=== PATIENT | male | born 1940 | race Caucasian/White ===

== ENCOUNTER → 2024-04-28 14:33 | Outpatient (REF) | payer OTHER, SELFPAY | LOC: RAD 14:33 | PROVIDERS: ATTENDING PHYSICIAN Surgery Vascular Surgery; FAMILY PHYSICIAN Family Medicine | DX: I65.23 Occlusion and stenosis of bilateral carotid arteries (principal) | CPT/HCPCS: 93880 ==

== ENCOUNTER → 2024-05-15 14:00 | Outpatient (REF) | payer MEDICARE, SELFPAY | LOC: RCS 14:00 | PROVIDERS: ATTENDING PHYSICIAN Nurse Practitioner; FAMILY PHYSICIAN Family Medicine | DX: I25.10 Atherosclerotic heart disease of native coronary artery without angina pectoris (principal); R01.1 Cardiac murmur, unspecified; I10 Essential (primary) hypertension; E78.00 Pure hypercholesterolemia, unspecified | CPT/HCPCS: 93306 ==

== ENCOUNTER → 2024-06-26 19:49 | Outpatient (REF) | payer MEDICARE, SELFPAY | LOC: MRI 19:49 | PROVIDERS: ATTENDING PHYSICIAN Family Medicine | DX: R41.89 Other symptoms and signs involving cognitive functions and awareness (principal) | CPT/HCPCS: 70553; A9575 ==

== ENCOUNTER → 2024-11-03 15:26 | Outpatient (REF) | payer MEDICARE, SELFPAY | LOC: DHVS 15:26 | PROVIDERS: ATTENDING PHYSICIAN Surgery Vascular Surgery; FAMILY PHYSICIAN Family Medicine | DX: I65.23 Occlusion and stenosis of bilateral carotid arteries (principal) | CPT/HCPCS: 93880 ==

== ENCOUNTER 2025-04-20 12:51 | Observation (INO) | payer MEDICARE, SELFPAY ==
[2025-04-20] VITALS (11 sets, daily range): BP systolic 102–171; BP diastolic 45–72; PULSE 74; O2SAT 98; BMI 25.0; BMI 29.1
[2025-04-20 10:12] LABS: COVID-19 Antigen Positive (Negative)
[2025-04-20] MEDS: TYLENOL 650 MG PO ×2 (10:55→20:46)
[2025-04-20 10:59] LABS: Hematocrit 34.2 % (39.0-52.0); Hemoglobin 11.6 g/dL (13.0-18.0); Mean Corp Hgb Conc. 33.9 g/dL (33.0-37.0); Mean Corpuscular Volume 85.7 fL (80.0-94.0); Nucleated Red Blood Cells % 0 % (-); Platelet Count 146 10^3/uL (130-400); Red Cell Dist. Width 13.6 % (11.5-14.5)
--- NOTE | 2025-04-20 11:00 | ED.GENMED ---
History of Present Illness
General
Chief Complaint: Fever
Source: patient, family and ambulance crew
Exam Limitations: none
Time Seen by Provider: 04/20/25 10:16
Nursing documentation reviewed up to this point in time: agreed with
History of Present Illness
History of Present Illness:
84-year-old male with a past medical history of hypertension, hyperlipidemia, diabetes, CAD status post CABG who presents to the emergency department with his son for evaluation of generalized weakness. Patient currently lives at home in the
community with his . It sounds like over the past few days he has had increased generalized weakness. Overnight could not even stand to go to the bathroom on his own, this morning had great difficulty even getting him out of bed and into
a chair. EMS was called to bring him to the hospital for assessment. He has had mild cough over the past few days. Reports some mild congestion. Denies any sore throat. Denies any chest pain or shortness of breath. He was noted to have a fever
on arrival but denies subjective fever/chills. His is apparently sick with COVID. Aside from above complaints, patient's son notes that he has had a general functional decline over the past few months, has not been able to get up and go to
the bathroom on his own to the point that he is doing himself and discarding his underwear to avoid telling his .
Past History
Past History
ED Past Medical History: CAD and NIDDM
ED Past Surgical History: Cardiac
Social History
Tobacco: Former smoker
Review of Systems
Review of Systems
All Other Systems: ROS reviewed and negative except as documented in HPI and ROS
Constitutional: Reports fever and fatigue; Denies chills
EENT: Reports runny nose; Denies sore throat
Respiratory: Reports cough; Denies trouble breathing
Cardiac: Denies chest pain
ABD/GI: Denies abdominal pain, nausea, vomiting or diarrhea
: Denies flank pain
Musculoskeletal: Denies neck pain or back pain
Neurological: Reports weakness (Generalized); Denies headache
Phy Exam
Physical Exam
Physical Exam:
General: Awake, alert, oriented x3; no acute distress
Head: Normocephalic, atraumatic
Eyes: Conjunctiva normal, sclera anicteric
Throat: Airway intact, handling secretions, generally moist mucous membranes with no injection in the oropharynx
Neck: Trachea midline
Lungs: Occasional wheeze but no focal rales or rhonchi, mild tachypnea but no hypoxia and no signs of accessory muscle use or respiratory distress
Heart: Regular rate and rhythm, systolic murmur appreciated, sternotomy scar from prior CABG
Abd: Soft, non distended, nontender
Neuro: Grossly intact, moving all extremities without focal deficit
Skin: Warm and dry
Extremities: No edema in extremities, equal pulses in all extremities
Scores
Heart Failure Risk
Heart Failure Risk Score: Not Applicable
Heart Score for Chest Pain Patients
STEMI patient?: Not applicable
Withdrawal Assessment of Alcohol
Withdrawal Assessment Completed?: Not applicable
Course
Orders/Labs/Results
Orders:
Orders
04/20/25 09:39
COVID-19 Antigen Urgent
Source: Nasal Swab
Influenza A+B Rapid Molecular Urgent
ANIRUDH Source: Nasal Swab
Specimen Description:
04/20/25 10:37
Acetaminophen [Tylenol] 650 mg PO NOW STA
CR Chest - 2 Views Urgent
Comment:
Reason For Exam: fever, cough
04/20/25 10:53
Complete Blood Count/With Diff Urgent
Comprehensive Metabolic Panel Urgent
04/20/25 10:59
Case Management Consult ONCE
Case Management Consult: VN/Home Care
0.9% Sodium Chloride 500 ml [Nss] 500 ml IV BOLUS
04/20/25 11:06
Electrocardiogram (*1) Urgent
Reason for Study: Fatigue / Weakness
EKG- Treatment ONCE
Urinalysis Reflex To Culture Urgent
Abnormal Lab Results
04/20/25 04/20/25
09:39 10:53
RBC 3.99 L 10^6/uL
(4.70-6.10)
Hgb 11.6 L g/dL
(13.0-18.0)
Hct 34.2 L %
(39.0-52.0)
MPV 10.7 H fL
(7.4-10.4)
Absolute Lymphs (auto) 0.8 L 10^3/uL
(1.2-3.4)
Absolute Monos (auto) 0.8 H 10^3/uL
(0.1-0.6)
Immature Gran % 0.7 H %
(0-0.5)
Lymphocytes % 12.2 L %
(20.5-51.1)
Monocytes % 13.5 H %
(1.7-9.3)
Glucose 133 H mg/dl
(70-99)
SARS-CoV-2 Antigen Positive A
(Negative)
04/20/25 10:53
04/20/25 10:53
Vital Signs
Initial and Last Documented VS:
Initial Vital Signs
Temp Pulse Resp Pulse Ox
37.6 C 78 26 96
04/20/25 09:32 04/20/25 09:32 04/20/25 09:32 04/20/25 09:32
Last Documented Vital Signs
Temp Pulse Resp BP Pulse Ox
38.2 C H 78 26 120/48 98
04/20/25 09:46 04/20/25 09:32 04/20/25 09:32 04/20/25 09:34 04/20/25 11:06
MDM/Problems Addressed
Differential Diagnosis Includes:
COVID/viral illness, pneumonia, UTI, anemia, electrolyte derangement/dehydration, general deconditioning
MDM/Problems Addressed:
84-year-old male presents for evaluation of increased weakness over the past few days associated with cough and congestion; is sick with COVID. Son also notes general functional decline over the past few months. He is febrile on arrival here
with mild tachypnea but no hypoxia, normal heart rate and acceptable blood pressure. Physical exam is as noted. Will plan to check labs including a CBC and a CMP. COVID and flu swabs. Check chest x-ray and urinalysis. Reassess after the above.
Patient's COVID swab is positive suspect this is the etiology of his acute decline. I had a long discussion with the son who is concerned about patient's physical condition and especially given that only support at home is patient's who is 78
years old and sick herself. Will plan likely to admit given his functional limitations. Discussed with case management for consultation. Rest of workup is pending.
Labs reviewed: CBC shows stable anemia, CMP no clinically significant abnormalities. Chest x-ray shows no acute pneumonia. Will plan to admit for continued care given acute on chronic physical deconditioning with case management consultation
pending. Discussed with hospitalist for admission
*Radiology
Radiology exam reviewed: preliminary read by ED provider
*Pulse Oximetry
SaO2: 98
Oxygen Mode of Delivery: Room air
Patient hypoxic: no (98%)
*Critical Care Note
Total Time (30-74mins, 75-104mins- exclusive of procedures): Not Applicable
Data Reviewed
Review of Other/Old Records Reveals: Labs and Records
Source: patient, family and ambulance crew
Patient Management
Social determinants of health affecting care: Living situation (Lives independently with his elderly ) and Poor social support
Discussion with other providers: Hospitalist (Discussed with hospitalist) and Other (Discussed with nurse case management)
Escalation/DeEscalation of care consider admission/obs:
Admission indicated
ED Attending Note
-
Portions of this chart may have been created with voice recognition software.� Occasional wrong word or��sound alike� substitutions may have occurred due to the inherent limitations of voice recognition software.
Discharge Plan
Departure
Patient Disposition: Admit
Date of Disposition: 04/20/25
Time of Disposition: 11:38
Admit to doctor: Lenora
Presentation/result/management discussed w/ accepting MD/DO: Hospitalist
Discharge Problem:
COVID-19, Physical deconditioning
Prescriptions:
No Action
aspirin 81 MG tablet,delayed release (DR/EC)
81 mg PO DAILY
atorvastatin 40 MG tablet
40 mg PO DAILY
metformin 500 MG tablet
500 mg PO DAILY
clopidogrel 75 MG tablet
75 mg PO DAILY
Patient Comments:
1 week prior to surgery
metoprolol tartrate 25 MG tablet
25 mg PO BID
ergocalciferol (vitamin D2) 50 MCG tablet
50,000 units PO FR
tamsulosin 0.4 MG capsule
0.4 mg PO DAILY Qty: 30 0RF
Referrals:
Xavi Dutta DO [Family Provider, Family Practice]
Interventions
Interventions:
*Risk Screen - Suicide Last Done: 04/20/25 09:35
*General Assessment Last Done: 04/20/25 09:35
*Neglect/Abuse Screening Last Done: 04/20/25 09:35
*ED- Fall Risk Assessment Last Done: 04/20/25 09:35
*ED COVID-19 Vaccine History Last Done: 04/20/25 09:35
*ED Influenza Vaccine History Last Done: 04/20/25 09:35
Discharge Date and Time
Print Language: KYRGYZ
[2025-04-20 11:15] LABS: ALT (SGPT) 21 U/L (0-50); AST (SGOT) 23 U/L (17-59); Albumin 4.4 g/dl (3.5-5.0); Alkaline Phosphatase 68 U/L (38-126); Blood Urea Nitrogen 15 mg/dl (9-20); Calcium 9.0 mg/dl (8.4-10.2); Carbon Dioxide 29 mmol/L (22-30); Chloride 102 mmol/L (98-107); Estimated Creatinine Clearance 63 ml/min; Glucose 133 mg/dl (70-99); Potassium 4.0 mmol/L (3.5-5.1); Sodium 139 mmol/L (135-145); Total Protein 7.5 g/dl (6.3-8.2); eGFR > 60.00
[2025-04-20] MEDS: NSS 500 IV (11:26)
--- NOTE | 2025-04-20 12:04 | PHANOTE ---
med rec note- called patient girl-friend at [phone] or [phone] for medication list
--- NOTE | 2025-04-20 12:05 | HPS.HSE ---
Addendum entered and electronically signed by Daniela Yoder MD 04/20/25 14:34:
This is an addendum to H&P written by Luz Lawton in 04/20/2025. �Patient seen and examined independently with PA.
84-year-old male past medical history of carotid artery stenosis, CAD status post CABG, type 2 diabetes, BPH, hyperlipidemia, hypertension, former tobacco use, presenting with generalized weakness. �Mild cough for past few days. �Denies subjective
fever or chills. � is sick with COVID. �Functional decline over few months.
Vital signs shows fever of 100.8. �Patient not hypoxic.
Labs show stable anemia of 11.6.
Patient positive for COVID. �Chest x-ray showed no acute abnormality.
Patient with COVID not hypoxic. IV fluids given. �Paxlovid, Hold statin. �PT/OT.
Original Note:
Family Physician
-
Family Physician: Xavi Dutta
Chief Complaint
-
Generalized Weakness
History of Present Illness
Patient is a 84-year-old male past medical history of ASCVD, ALS, hypertension, diabetes, and dementia who presents with weakness. Patient lives with his girlfriend who tested positive for COVID yesterday. Overnight patient was unable to get
himself to the bathroom and had to lower himself to the ground, and was unable to get up off the floor. EMS was called and he was brought to the emergency department for evaluation. Patient admits to mild cough over the last several days. He
denies shortness of breath. He was noted to have low-grade fever upon arrival of 100.8 �F.
Medical History
Past Medical History
Past Medical History: Reports Other
Additional Past Medical History:
Coronary Artery Disease s/p CABG
Carotid Artery Stenosis s/p Left Carotid Artery Stent
Moderate Aortic Stenosis
Essential Hypertension
Hyperlipemia
Diabetes Mellitus, Type II
Alzheimer's Dementia
BPH
Past Surgical History: Reports Other
Additional Past Surgical History:
CABG
Left Carotid Artery Stent (TCAR)
Social History
Tobacco: Former Smoker
Alcohol: None
Living: Other (Living with girlfriend)
Family History
Family History: Not pertinent
Allergies / Home Medications
Allergies reflects when Allergies were last updated in [facility].
Home Medications with original date entered in [facility]
Allergy/Medication List:
Allergies
Allergy/AdvReac Type Severity Reaction Status Date / Time
No Known Allergies Allergy Verified 11/02/20 10:08
Home Medications
aspirin 81 mg tablet,delayed release 81 mg PO DAILY Blood clot prevention/tx 02/06/13
atorvastatin 40 mg tablet 60 mg PO DAILY High cholesterol 11/02/20
metformin 500 mg tablet 500 mg PO DAILY Diabetes 11/02/20
donepezil 5 mg tablet 5 mg PO HS 04/20/25
metoprolol succinate 25 mg tablet,extended release 24 hr (Toprol XL) 25 mg PO BID 04/20/25
Review of Systems
-
History Source: Patient
A 12 point ROS was completed and negative except as noted: Yes
Constitutional: Reports Fever; Denies Chills
Respiratory: Reports Cough; Denies Trouble Breathing
Cardiac: Denies Chest Pain or Palpitations
Abdomen/GI: Denies Abdominal Pain, Nausea, Vomiting, Diarrhea or Constipated
Physical Exam
Vital Signs
Vital Signs
Temp Pulse Resp BP Pulse Ox
100.8 F H 78 26 120/48 98
04/20/25 09:46 04/20/25 09:32 04/20/25 09:32 04/20/25 09:34 04/20/25 11:06
Physical Exam
General: Well Developed, Well Nourished and No Apparent Distress
HEENT: NormoCephalic, Anicteric, Moist mucous membranes and Atraumatic
Respiratory: Clear and Non Labored Respirations
Cardiac: S1/S2, Regular Rhythm and Murmur
GI: Soft, Non Tender and Non Distended
Rectal: Deferred by Provider
Musculoskeletal: No Clubbing, No Cyanosis and No Edema
Skin: Warm and Dry; No Rash
Neuro: Awake, Alert and Nonfocal/grossly intact
Psych: Calm
Laboratory Results
-
04/20/25 10:53
04/20/25 10:53
Laboratory Results
Total Bilirubin 1.0 mg/dl (0.2-1.3) 04/20/25 10:53
AST 23 U/L (17-59) 04/20/25 10:53
ALT 21 U/L (0-50) 04/20/25 10:53
Alkaline Phosphatase 68 U/L (38-126) 04/20/25 10:53
Impression/Plan
-
Weakness / Ambulatory Dysfunction
-Consult PT / OT
-Consult Case Management
COVID Infection
-Patient is not hypoxia and CXR does not show any evidence of pneumonia
-Start Paxlovid
Coronary Artery Disease s/p CABG
Carotid Artery Stenosis s/p Left Carotid Artery Stent
-Continue aspirin
Moderate Aortic Stenosis
-Monitor Daily Weights
Essential Hypertension
-Continue Metoprolol
Hyperlipemia
-Hold atorvastatin while on Paxlovid
Diabetes Mellitus, Type II
-Hold metformin
-Monitor sugars and continue coverage insulin
Alzheimer's Dementia
-Continue donepezil
DVT Proph: Lovenox
Code Status: Full Code
--- NOTE | 2025-04-20 13:10 | CM ---
CM spoke with SPRING/Eleonora as pt sleeping
Both pt and SO COVID+
They have been together for 20 years+ and reside in a rental modular home with 4 TYREE
Pt is independent with his ADLs without use of AD, he drives+, has a SPC for PRN use
SO noted pt has appt with neuro in December 2025 for dementia workup as forgetfulness and occasional confusion noted
Pt has 4 sons (Dank with Eleonora and Mason, Kayode and Bora with prior partner)
All fairly local and generally involved
Pt does not have a POA or advanced directives
SO notes pt with limited income, SS only and he does participate in rent
She mostly takes care of all expenses as she is still work at [employer]
PCP- Xavi Dutta
Rx- [facility] [address]
PT/OT pending
SO aware if SNF recs, limited options due to COVID status
Role of [employer] explained in prior auth process
Discharge Disposition- anticipate home with VN, watch for possible SNF needs
[2025-04-20 16:07] LABS: Urine Character Clear (Clear)
[2025-04-20 16:39] LABS: Urine Squamous Cell 0-2 /LPF (Few)
[2025-04-20 16:40] LABS: Urine Red Blood Cell 0-2 /HPF (0-2); Urine White Cell 0-2 /HPF (0-5)
[2025-04-20] MEDS: LOVENOX 40 MG SC (17:38)
[2025-04-20] MEDS: PAXLOVID 2X150 MG-100 MG DOSE PACK 1 DOSE PO (20:36)
[2025-04-20] MEDS: TOPROL XL 25 MG PO (20:36)
[2025-04-20] MEDS: ARICEPT 5 MG PO (21:10)
[2025-04-20 21:47] LABS: Glucose - Point of Care 115 mg/dl (70-99)
[2025-04-21 06:00] VITALS: BMI 29.3
[2025-04-21 07:55] VITALS: BP 128/53
[2025-04-21] MEDS: ASPIR LOW (ENTERIC COATED) 81 MG PO (09:20)
[2025-04-21] MEDS: PAXLOVID 2X150 MG-100 MG DOSE PACK 1 DOSE PO (09:20)
[2025-04-21] MEDS: TOPROL XL 25 MG PO (09:20)
[2025-04-21 09:36] LABS: Glucose - Point of Care 103 mg/dl (70-99)
[2025-04-21 11:12] LABS: Glycohemoglobin (HgbA1c) 6.9 % (4.0-5.6)
--- NOTE | 2025-04-21 13:07 | W.PN.HOSP.TC ---
Today's Communication/Plan
-
d/c
Assessment / Plan
Assessment / Plan
pt is an 84 year old male
Weakness/Ambulatory Dysfunction--due to COVID--seen by PT--supervision ONLY and recommending home health vs NO needs--will order VN
COVID Infection--Patient is not hypoxia and CXR does not show any evidence of pneumonia--finish Paxlovid
Coronary Artery Disease s/p CABG/Carotid Artery Stenosis s/p Left Carotid Artery Stent--Continue aspirin
Moderate Aortic Stenosis
Essential Hypertension--Continue Metoprolol
Hyperlipemia--Hold atorvastatin while on Paxlovid
Diabetes Mellitus, Type II--restart metformin--Monitor sugars and continue coverage insulin
Alzheimer's Dementia--Continue donepezil
DVT Proph: Lovenox
Code Status: Full Code
d/c
Anticipated Discharge: Today
Subjective/Interval History
-
Date of Service: April 21, 2025
pt without c/o
Objective Data
-
Vital Signs:
max temp for 24 hours
04/20/25
20:57
Temp 101.3 F H
Laboratory Tests
04/20/25
09:39
SARS-CoV-2 Antigen Positive A
Vital Signs
Temp Pulse Resp BP Pulse Ox
99.7 F 67 16 128/53 97
04/21/25 07:55 04/21/25 09:20 04/21/25 07:55 04/21/25 09:20 04/21/25 10:02
I&O
04/20/25 04/21/25 04/22/25
06:59 06:59 06:59
Intake Total 480 / 480
Output Total 400 / 400
Balance 80 / 80
Review of Systems
-
All other systems: Reviewed and negative
Physical Exam
-
General: Well Developed, Well Nourished and No Apparent Distress
HEENT: Normocephalic and Atraumatic; Negative Oxygen
Respiratory: Clear to Auscultation; Negative Wheezes, Rales, Rhonchi or Crackles
Cardiac: Regular Rhythm and S1/S2; Negative Murmur
GI: Soft, Nontender, Nondistended and Normal Bowel Sounds
Musculoskeletal: No Clubbing, No Cyanosis and No Edema
Neuro: Awake
Psych: Apparent Dementia
[2025-04-21] MEDS: FLUZONE HIGH-DOSE 2025-26 0.5 ML IM (13:41)
--- NOTE | 2025-04-21 13:43 | CM ---
Patient spoke with CM via phone and per patient she will have her son's mixing picker tender patient for discharge today. CM reviewed OBS/PANG form with patient and copy given to patient. Patient declined VN at this time and stated that she
would call to patient PCP for follow up appointment. CM will continue to follow for discharge planning needs.
Plan; home with no needs at this time.
[2025-04-21 13:50] VITALS: BP 148/97
--- NOTE | 2025-04-21 15:15 | W.DCSUMMARY ---
Discharge Summary
Discharge Data
Date of Admission: 04/20/25
Date of Discharge: 04/21/25
-
Pending Results: No
Hospital Course
Primary care physician : Xavi Dutta
Principal Discharge diagnosis : Weakness and ambulatory dysfunction secondary to COVID infection
Chronic Discharge diagnosis : Coronary artery disease status post bypass surgery, carotid artery stenosis status post left carotid artery stent, essential hypertension, hyperlipidemia, type 2 diabetes mellitus, Alzheimer's dementia, moderate aortic
stenosis
Hospital Course : Patient was an 84-year-old male who lives with his girlfriend/significant other who tested positive for COVID on the day prior to the patient's admission. Overnight, the patient was unable to get himself to the bathroom and had to
lower himself to the ground. He was also unable to get up off the floor. EMS was called and the patient was brought to the emergency department for evaluation. He was noted to have a low-grade fever upon arrival and he in fact tested positive for
COVID. Patient was brought in as observation.
Problem #1: Weakness and ambulatory dysfunction secondary to COVID infection. Patient's statin medication was held and he was started on Paxlovid. He was not hypoxic, there was no pneumonia/infiltrate on chest x-ray. He was seen in consultation
by physical therapy who recommended home health versus no needs as he was supervision level. Patient is stable for discharge home at this time. He will finish out his Paxlovid course and hold his statin while on this.
Problem #2: All other medical issues. These include Coronary artery disease status post bypass surgery, carotid artery stenosis status post left carotid artery stent, essential hypertension, hyperlipidemia, type 2 diabetes mellitus, Alzheimer's
dementia, moderate aortic stenosis. These medical issues were stable during his hospitalization. Medications were continued as able.
Patient is stable for discharge home at this time. If there are any questions regarding this dictation or his hospital stay, please do not hesitate to call. Our office number is [phone].
Discharge Plan
-
Patient Disposition: Home with Home Care
Discharge Diagnosis/Procedures: Weakness and ambulatory dysfunction due to COVID infection, coronary artery disease status post bypass surgery along with carotid artery stenosis status post left carotid artery stent in past, moderate aortic
stenosis, essential hypertension, hyperlipidemia, type 2 diabetes mellitus, Alzheimer's dementia
Condition: Good
Diet: 2 Gram Sodium
Activity: As tolerated
Driving Restrictions: As prior to admission
Bathing Restrictions: None
Other Services: VN, PT and OT
Referrals:
Xavi Dutta DO [Family Provider, [facility]] - in less than 1 week
Additional Discharge Medication Instructions: Do not take your atorvastatin while on the treatment for COVID (Paxlovid)
Prescriptions:
New
acetaminophen 325 mg Tablet
650 mg PO Q4HPRN PRN (Reason: mild pain/ fever>100.5F) Qty: 0 0RF
Paxlovid 300 mg (150 mg x 2)-100 mg tablets,dose pack
See Rx Instructions .ROUTE .COMPLEX Qty: 30 0RF
Rx Instructions:
take TWO 150 mg tablets of nirmatrelvir with ONE 100 mg tablet of ritonavir twice daily for 5 days
Continued
aspirin 81 MG tablet,delayed release (DR/EC)
81 mg PO DAILY
metformin 500 MG tablet
500 mg PO DAILY
donepezil 5 mg Tablet
5 mg PO HS
metoprolol succinate [Toprol XL] 25 mg Tablet Extended Release 24 Hr
25 mg PO BID
Held
atorvastatin 40 MG tablet
60 mg PO DAILY
Hold Instructions: do NOT take while on Paxlovid (treatment for Covid)
Discharge Orders:
Discharge Patient (As Directed); Ordered 04/21/25
Ordered By: Alejandra Lerma
Discharge Date and Time
Discharge Date/Time: 04/21/25 14:39
Print Language: SENEGALESE
== END 2025-04-21 14:39 | disposition home health service (06) ==
LOC: 2 NORTH 12:51
PROVIDERS: ADMITTING PHYSICIAN Hospitalist; ATTENDING PHYSICIAN Internal Medicine; EMERGENCY PHYSICIAN Emergency Medicine; FAMILY PHYSICIAN Family Medicine
DX: U07.1 COVID-19 (principal); R53.1 Weakness; I25.10 Atherosclerotic heart disease of native coronary artery without angina pectoris; I10 Essential (primary) hypertension; E78.5 Hyperlipidemia, unspecified; E11.9 Type 2 diabetes mellitus without complications; G30.9 Alzheimer's disease, unspecified; F02.B0 Dementia in other diseases classified elsewhere, moderate, without behavioral disturbance, psychotic disturbance, mood disturbance, and anxiety; I06.0 Rheumatic aortic stenosis; N40.0 Benign prostatic hyperplasia without lower urinary tract symptoms; Z79.899 Other long term (current) drug therapy; Z87.891 Personal history of nicotine dependence
CPT/HCPCS: 71046; 80053; 81003; 81015; 82962; 83036; 85025; 87086; 87502; 87811; 90662; 93005; 96360; 97162; 99285; G0008; G0378

== ENCOUNTER 2025-06-21 10:42 | Inpatient (IN) | payer MEDICARE, SELFPAY ==
[2025-06-19 14:09] VITALS: BP 140/71
[2025-06-19 14:13] VITALS: BP 140/71; BMI 25.0
[2025-06-19 14:20] LABS: Hematocrit 36.3 % (39.0-52.0); Hemoglobin 12.6 g/dL (13.0-18.0); Mean Corp Hgb Conc. 34.7 g/dL (33.0-37.0); Mean Corpuscular Volume 84.2 fL (80.0-94.0); Nucleated Red Blood Cells % 0 % (-); Platelet Count 146 10^3/uL (130-400); Red Cell Dist. Width 13.5 % (11.5-14.5)
[2025-06-19 14:45] LABS: COVID-19 Antigen Negative (Negative)
[2025-06-19 15:00] VITALS: BP 149/66
[2025-06-19 15:30] LABS: ALT (SGPT) 21 U/L (0-50); AST (SGOT) 25 U/L (17-59); Albumin 4.2 g/dl (3.5-5.0); Alkaline Phosphatase 78 U/L (38-126); Blood Urea Nitrogen 17 mg/dl (9-20); Calcium 8.9 mg/dl (8.4-10.2); Carbon Dioxide 32 mmol/L (22-30); Chloride 98 mmol/L (98-107); Estimated Creatinine Clearance 63 ml/min; Glucose 134 mg/dl (70-99); Magnesium 1.7 mg/dl (1.6-2.3); Potassium 4.1 mmol/L (3.5-5.1); Sodium 134 mmol/L (135-145); Total Protein 7.4 g/dl (6.3-8.2); eGFR > 60.00
[2025-06-19 15:42] VITALS: BP 154/55
--- NOTE | 2025-06-19 16:43 | ED.GENMED ---
History of Present Illness
General
Chief Complaint: Weakness
Source: patient and spouse
Time Seen by Provider: 06/19/25 14:52
History of Present Illness
History of Present Illness:
Note:
CHIEF COMPLAINT(S)
Weakness, falls, rash, confusion.
HISTORY OF PRESENT ILLNESS
The patient is an 84-year-old male who presented with sudden weakness and multiple falls. According to the spouse, the patient was walking outside to take the trash out when he fell on the sidewalk. Prior to this, he had been fine, having walked and
eaten dinner without any issues. The spouse managed to assist him back into the house. Later that night, the patient attempted to go to the bathroom but fell again. The following morning, he appeared to improve slightly, exhibiting shuffling gait.
However, after returning from work, the spouse found him on the floor; the patient reported having fallen three times throughout the day. The patient also has a rash on his back and stomach, identified as shingles. The spouse noted that the patient
has early dementia and queried whether the shingles or a possible COVID-19 infection might be contributing to his weakness.
PAST MEDICAL AND SURGICAL HISTORY
Early dementia.
CAD
HTN
HLD
CABG
BPH
PHYSICAL EXAM
General: Patient is awake, alert but confused.
Skin: Presents with a varicella-zoster rash extending from the left lower back wrapping around to the left anterior abdomen, composed of vesicles and red papules.
Neurological: Cranial nerves are intact. There is noted left upper extremity weakness with pronator drift; does maintain left hand strength up in the air. Lower extremities are equal in strength. Speech is normal. confused. no noted ataxia
CV: heart regular
no resp distress
no edema
PROBLEM LIST
Acute Problems:
- Sudden onset weakness.
- Multiple falls.
- Rash consistent with shingles.
Chronic Problems:
- Early dementia.
PLAN
Further evaluation of the patients sudden weakness and repeated falls is necessary. Possible hospitalization may be required due to potential dehydration and inability to perform activities of daily living safely. Initiate treatment for shingles,
and monitor for potential complications or secondary infections. Evaluate for possible underlying infections such as COVID-19, given the differential includes viral infection impact on the patient�s overall condition.
DIFFERENTIAL DIAGNOSIS
The Differential Diagnosis includes, in no particular order and is not limited to:
- Dehydration
- Medication side effects
- Urinary tract infection
- Cerebrovascular accident
- Cardiac event
- Hypoglycemia
- Electrolyte imbalance
- Shingles impact
- Upper respiratory viral infection (including possible COVID-19)
- Complicated dementia progression
EKG
My independent EKG interpretation is:
- Rhythm: Normal sinus rhythm
- Heart rate: 76 bpm
- Vona: Normal
- Intervals: Normal
- ST and T wave: No specific changes
Disposition:
SUMMARY OF ENCOUNTER
The patient, an 84-year-old male, was seen in the emergency department for profound weakness and frequent falls attributed to leg weakness. On examination, he presented with a varicella-zoster rash consistent with shingles on the left side. There
was a note of confusion, likely due to a history of early dementia. Neurologically, he demonstrated weakness in the left upper extremity, raising concerns about whether his weakness might be due to a potential neurological event. The weakness began
yesterday, and he is not a candidate for tissue plasminogen activator (tPA); MRI may be considered to further evaluate his condition. Treat shingles. he cannot walk. admit. Of note, he did have similar profound weakness when he developed COVID and
I question whether his weakness could be metabolic in nature related to his current and active shingles
ASSESSMENT
The patients weakness may be attributed to either shingles impact or a possible neurological event, considering his confusion and ataxia.
PLAN
The plan includes further evaluation of the patients condition, considering both shingles and possible neurological involvement. Since a neurological event cannot be ruled out, MRI may be considered for further evaluation. The management will
include treating shingles and monitoring for any complications.
INDEPENDENT REVIEW OF LABS AND INTERPRETATION OF TESTS
My independent EKG interpretation is normal sinus rhythm with a heart rate of 76 bpm, normal axis, normal intervals, and no specific ST or T wave changes.
MEDICAL DECISION MAKING
-Chronic conditions affecting care include early dementia. The differential diagnosis considers the impact of dehydration, medication side effects, urinary tract infection, cerebrovascular accident, cardiac event, hypoglycemia, electrolyte
imbalance, shingles impact, upper respiratory viral infection (including possible COVID-19), and complicated dementia progression.
-Data:
Category 1
- EKG independently interpreted as normal sinus rhythm with no significant changes.
Category 2
- Clinical information obtained from the spouse who provided history regarding the patients previous health and recent episodes of falls.
-Risk:
Consideration of potential neurological evaluation, possibly through MRI, due to the patients neurological presentation and the differential diagnosis includes broader considerations such as cerebrovascular accident or shingles impact on nervous
function.
DIAGNOSIS
- Weakness, unspecified (R53.1)
- Shingles (B02.9)
- Ataxia (R27.0)
- Dementia, unspecified (F03.90)
Past History
Past History
ED Past Medical History: CAD and NIDDM
ED Past Surgical History: Cardiac
Social History
Tobacco: Former smoker
Phy Exam
Physical Exam
Physical Exam:
.
Course
Orders/Labs/Results
Orders:
Orders
06/19/25 14:05
EKG [Electrocardiogram (*1)] Urgent
Reason for Study: Fatigue / Weakness
EKG- Treatment ONCE
06/19/25 14:11
COVID-19 Antigen Urgent
Source: Nasal Swab
Complete Blood Count/With Diff Urgent
Influenza A+B Rapid Molecular Urgent
ANIRUDH Source: Nasal Swab
Specimen Description:
06/19/25 14:53
CT Head W/o Iv Contrast Urgent
Comment:
Reason For Exam: difficulty walking, weakness
06/19/25 15:00
Comprehensive Metabolic Panel Urgent
Magnesium Urgent
06/19/25 16:40
Valacyclovir HCl [Valtrex] 1,000 mg PO NOW STA
Abnormal Lab Results
06/19/25 06/19/25
14:11 15:00
RBC 4.31 L 10^6/uL
(4.70-6.10)
Hgb 12.6 L g/dL
(13.0-18.0)
Hct 36.3 L %
(39.0-52.0)
Absolute Lymphs (auto) 0.6 L 10^3/uL
(1.2-3.4)
Absolute Monos (auto) 0.7 H 10^3/uL
(0.1-0.6)
Immature Gran % 0.6 H %
(0-0.5)
Lymphocytes % 10.7 L %
(20.5-51.1)
Monocytes % 13.7 H %
(1.7-9.3)
Sodium 134 L mmol/L
(135-145)
Carbon Dioxide 32 H mmol/L
(22-30)
Glucose 134 H mg/dl
(70-99)
Total Bilirubin 1.6 H mg/dl
(0.2-1.3)
06/19/25 14:11
06/19/25 15:00
Vital Signs
Initial and Last Documented VS:
Initial Vital Signs
Pulse Resp Pulse Ox
76 24 95
06/19/25 14:05 06/19/25 14:05 06/19/25 14:05
Last Documented Vital Signs
Temp Pulse Resp BP Pulse Ox
98.3 F 76 22 140/71 96
06/19/25 14:13 06/19/25 14:13 06/19/25 14:13 06/19/25 14:13 06/19/25 14:13
*Pulse Oximetry
SaO2: 96
Oxygen Mode of Delivery: Room air
Patient hypoxic: no
*Critical Care Note
Total Time (30-74mins, 75-104mins- exclusive of procedures): Not Applicable
ED Attending Note
-
Portions of this chart may have been created with voice recognition software.� Occasional wrong word or��sound alike� substitutions may have occurred due to the inherent limitations of voice recognition software.
Discharge Plan
Departure
Patient Disposition: Admit
Date of Disposition: 06/19/25
Time of Disposition: 16:51
Admit to: Med/Surg
Presentation/result/management discussed w/ accepting MD/DO: Hospitalist
Discharge Problem:
Varicella zoster, Weakness, Dementia
Prescriptions:
No Action
aspirin 81 MG tablet,delayed release (DR/EC)
81 mg PO DAILY
metformin 500 MG tablet
500 mg PO DAILY
metoprolol succinate [Toprol XL] 25 mg Tablet Extended Release 24 Hr
25 mg PO BID
clopidogrel 75 mg Tablet
75 mg PO DAILY
atorvastatin [Lipitor] 40 mg Tablet
60 mg PO QPM
ergocalciferol (vitamin D2) 1,250 mcg (50,000 unit) Capsule
1,250 mcg PO QWEEK
Referrals:
Xavi Dutta DO [Family Provider, Family Practice]
Interventions
Interventions:
*Risk Screen - Suicide Last Done: 06/19/25 14:13
*General Assessment Last Done: 06/19/25 14:13
*Neglect/Abuse Screening Last Done: 06/19/25 14:13
*ED COVID-19 Vaccine History Last Done: 06/19/25 14:13
*ED Influenza Vaccine History Last Done: 06/19/25 14:13
[facility] Fall Risk Assessment Tool Last Done: 06/19/25 14:13
ED- Cardiac Assessment Last Done: 06/19/25 14:13
ED- Neurological Assessment Last Done: 06/19/25 14:13
ED- Pulmonary Assessment Last Done: 06/19/25 14:13
Discharge Date and Time
Print Language: BENINESE
--- NOTE | 2025-06-19 16:57 | HPS.HSE ---
Family Physician
-
Family Physician: Xavi Dutta
Chief Complaint
-
Multiple Falls
History of Present Illness
Patient is an 84 y/o male past medical history of ASCVD, hypertension, hyperlipidemia, diabetes mellitus, and Alzheimer's dementia who presents following multiple falls at home. Patient initially fell last night in the driveway. Today patient had
three more falls. Due to patient's dementia he is unable to provide much additional history. While in the emergency department he was found to have a shingles rash on his left flank. Patient's girlfriend was unaware patient had a rash. Patient is
unable to tell me when the rash began.
Medical History
Past Medical History
Past Medical History: Reports Other
Additional Past Medical History:
Coronary Artery Disease s/p CABG
Carotid Artery Stenosis s/p Left Carotid Artery Stent
Moderate Aortic Stenosis
Essential Hypertension
Hyperlipemia
Diabetes Mellitus, Type II
Alzheimer's Dementia
BPH
Past Surgical History: Reports Other
Additional Past Surgical History:
CABG
Left Carotid Artery Stent (TCAR)
Social History
Tobacco: Former Smoker
Alcohol: None
Living: Other (Living with girlfriend)
Family History
Family History: Not pertinent
Allergies / Home Medications
Allergies reflects when Allergies were last updated in [facility].
Home Medications with original date entered in [facility]
Allergy/Medication List:
Allergies
Allergy/AdvReac Type Severity Reaction Status Date / Time
No Known Allergies Allergy Verified 11/02/20 10:08
Home Medications
aspirin 81 mg tablet,delayed release 81 mg PO DAILY Blood clot prevention/tx 02/06/13
metformin 500 mg tablet 500 mg PO DAILY Diabetes 11/02/20
metoprolol succinate 25 mg tablet,extended release 24 hr (Toprol XL) 25 mg PO BID Blood Pressure 04/20/25
atorvastatin 40 mg tablet (Lipitor) 60 mg PO QPM High Cholesterol 06/19/25
clopidogrel 75 mg tablet 75 mg PO DAILY 06/19/25
ergocalciferol (vitamin D2) 1,250 mcg (50,000 unit) capsule 1,250 mcg PO QWEEK 06/19/25
Review of Systems
-
Unable to obtain full review of systems at this time due to: Dementia
Physical Exam
Vital Signs
Vital Signs
Temp Pulse Resp BP Pulse Ox
98.3 F 75 13 154/55 96
06/19/25 14:13 06/19/25 16:45 06/19/25 16:45 06/19/25 15:42 06/19/25 16:46
Physical Exam
General: Well Developed, Well Nourished and No Apparent Distress
HEENT: NormoCephalic, Anicteric, Moist mucous membranes and Atraumatic
Respiratory: Clear and Non Labored Respirations
Cardiac: S1/S2, Regular Rhythm and Murmur
GI: Soft, Non Tender and Non Distended
Rectal: Deferred by Provider
Musculoskeletal: No Clubbing, No Cyanosis and No Edema
Skin: Warm, Dry and Rash (Left flank erythematous within single dermatome that does not cross the midline, few vesicles noted)
Neuro: Awake, Alert and Nonfocal/grossly intact
Psych: Calm
Laboratory Results
-
06/19/25 14:11
06/19/25 15:00
Laboratory Results
Total Bilirubin 1.6 mg/dl (0.2-1.3) H 06/19/25 15:00
AST 25 U/L (17-59) 06/19/25 15:00
ALT 21 U/L (0-50) 06/19/25 15:00
Alkaline Phosphatase 78 U/L (38-126) 06/19/25 15:00
Data Reviewed
-
Lab Data: Labs Reviewed by me
Old Records: Reviewed
Impression/Plan
-
Herpes Zoster
-Continue valacyclovir
Generalized Weakness / Frequent Falls, suspect related to herpes zoster
-Consult PT/OT
Coronary Artery Disease s/p CABG
Carotid Artery Stenosis s/p Left Carotid Artery Stent
-Continue aspirin and clopidogrel
-Continue atorvastatin
Essential Hypertension
-Continue metoprolol with hold parameters
Diabetes Mellitus, Type II
-Hold metformin
-Monitor sugars and continue coverage insulin
Alzheimer's Dementia - Stable
-Reviewed with patient's significant other that patient would likely benefit from Life Alert or similar product for when he is home alone
DVT proph: SCDs
Code Status: Full Code
[2025-06-19] MEDS: VALTREX 1000 MG PO ×2 (17:04→22:51)
--- NOTE | 2025-06-19 18:59 | W.PN.UPDATE ---
Update Note
Progress Note Update
Attending note
Patient seen independently
I agree with PA note
History of Present Illness/ initial presentation
84 y/o man with a history of:
ASCVD,
essential hypertension,
hyperlipidemia,
diabetes mellitus,
Alzheimer's dementia
presents after multiple falls at home. Today patient had three more falls. Due to patient's dementia he is unable to provide much additional history. In the ED he was noted to have a shingles on his left flank. He is unable to tell me when the
rash began. He was comfortable during my exam.
Past Medical History
Coronary Artery Disease s/p CABG
Carotid Artery Stenosis s/p Left Carotid Artery Stent
Moderate Aortic Stenosis
Essential Hypertension
Hyperlipemia
Diabetes Mellitus, Type II
Alzheimer's Dementia
BPH
CABG
Left Carotid Artery Stent (TCAR)
Physical Exam
General: Well Developed, Well Nourished and No Apparent Distress
HEENT: NormoCephalic, Atraumatic
Respiratory: Clear and Non Labored Respirations
Cardiac: S1/S2, Regular Rhythm and Murmur
GI: Soft, Non Tender and Non Distended
Skin: Warm, Dry with Rash
Neuro: Awake, Alert
Psych: Calm
A/P:
1. Herpes Zoster - may be causing the falls, given general illness in setting of dementia
-Continue valacyclovir
2. Generalized Weakness / Frequent Falls, suspect related to herpes zoster
-Consult PT/OT
3. Coronary Artery Disease s/p CABG complicated by Carotid Artery Stenosis s/p Left Carotid Artery Stent, and Essential Hypertension
-Continue aspirin and clopidogrel
-Continue atorvastatin
-Continue metoprolol with hold parameters
please see PA note for details on
Diabetes Mellitus, Type II
Alzheimer's Dementia - Stable
DVT proph: SCDs
Code Status: Full Code
[2025-06-19 19:54] VITALS: BP 132/64; BMI 24.6
[2025-06-19] MEDS: TYLENOL 650 MG PO (20:30)
[2025-06-19] MEDS: TOPROL XL 25 MG PO (20:33)
[2025-06-19] MEDS: LIPITOR 60 MG PO (20:33)
[2025-06-19] MEDS: DRISDOL (VITAMIN D2) 50000 UNITS PO (20:33)
[2025-06-19 22:10] LABS: Glucose - Point of Care 130 mg/dl (70-99)
[2025-06-19 23:21] VITALS: BP 153/58
[2025-06-20 06:00] VITALS: BMI 24.2
[2025-06-20 07:33] LABS: Glucose - Point of Care 141 mg/dl (70-99)
[2025-06-20 08:21] LABS: Hematocrit 35.4 % (39.0-52.0); Hemoglobin 12.3 g/dL (13.0-18.0); Mean Corp Hgb Conc. 34.7 g/dL (33.0-37.0); Mean Corpuscular Volume 83.7 fL (80.0-94.0); Platelet Count 146 10^3/uL (130-400); Red Cell Dist. Width 13.3 % (11.5-14.5)
[2025-06-20 08:54] LABS: ALT (SGPT) 26 U/L (0-50); AST (SGOT) 42 U/L (17-59); Albumin 4.1 g/dl (3.5-5.0); Alkaline Phosphatase 89 U/L (38-126); Blood Urea Nitrogen 16 mg/dl (9-20); Calcium 8.6 mg/dl (8.4-10.2); Carbon Dioxide 29 mmol/L (22-30); Chloride 96 mmol/L (98-107); Estimated Creatinine Clearance 74 ml/min; Glucose 137 mg/dl (70-99); Potassium 3.7 mmol/L (3.5-5.1); Sodium 132 mmol/L (135-145); Total Protein 7.0 g/dl (6.3-8.2); eGFR > 60.00
[2025-06-20] MEDS: NOVOLOG FLEXPEN-LOW RESISTANCE SC ×3 (09:26→17:25)
[2025-06-20] MEDS: VALTREX 1000 MG PO ×3 (09:27→20:58)
[2025-06-20] MEDS: PLAVIX 75 MG PO (09:28)
[2025-06-20] MEDS: ASPIR LOW (ENTERIC COATED) 81 MG PO (09:28)
[2025-06-20] MEDS: TOPROL XL 25 MG PO ×2 (09:28→20:57)
[2025-06-20 10:04] LABS: Glycohemoglobin (HgbA1c) 6.3 % (4.0-5.9)
--- NOTE | 2025-06-20 10:17 | W.PN.HOSP.TC ---
Today's Communication/Plan
-
PT/OT evals
consider MRI brain
continue Valacyclovir for Zoster
d/w Significant Other; Eleonora
Assessment / Plan
Assessment / Plan
Assessment:
Herpes Zoster, L back/Flank
- continue valacyclovir
- continue contact precautions
Generalized Weakness/Frequent Falls, suspect related to herpes zoster
Underlying Dementia (see below)
- consult PT/OT
Coronary Artery Disease s/p CABG
Carotid Artery Stenosis s/p Left Carotid Artery Stent
Moderate
- continue aspirin and clopidogrel
- continue atorvastatin
Essential Hypertension
- continue metoprolol with hold parameters
Diabetes Mellitus, Type II
- hold metformin
- monitor sugars and continue coverage insulin
- A1c: 6.3%
Alzheimer's Dementia - Stable
- reviewed with patient's significant other that patient would likely benefit from Life Alert or similar product for when he is home alone
DVT ppx: SCDs
Code Status: Full Code
Anticipated Discharge: 24 - 48 hours
Subjective/Interval History
-
Date of Service: June 20, 2025
resting comfortably, denies pain
spoke to friend Eleonora who reports multiple falls and states patient has early onset dementia
Objective Data
-
Labs:
Laboratory Results
06/20/25
07:40
WBC 5.4
Hgb 12.3 L
Hct 35.4 L
Plt Count 146
Sodium 132 L
Potassium 3.7
Chloride 96 L
Carbon Dioxide 29
BUN 16
Creatinine 0.6 L
Glucose 137 H
Calcium 8.6
Total Bilirubin 2.6 H D
AST 42
ALT 26
Alkaline Phosphatase 89
Vital Signs:
Vital Signs
Temp Pulse Resp BP Pulse Ox
99.8 F 72 18 153/58 95
06/20/25 07:30 06/19/25 23:21 06/20/25 07:30 06/19/25 23:21 06/20/25 07:30
I&O
06/19/25 06/20/25 06/21/25
06:59 06:59 06:59
Intake Total 380 / 380
Output Total 225 / 225
Balance 155 / 155
Physical Exam
-
General: No Apparent Distress
HEENT: Normocephalic and Atraumatic
Respiratory: Negative Wheezes
Cardiac: Regular Rhythm and S1/S2
Skin: Other (Left flank erythematous within single dermatome that does not cross the midline, few vesicles noted)
Neuro: Awake
Psych: Calm and Apparent Dementia
Data Reviewed
-
Total Time Spent with Patient (in minutes): 45
Labs: Labs Reviewed by me
[2025-06-20 11:07] VITALS: BP 153/63
[2025-06-20 11:09] VITALS: BP 153/63
[2025-06-20 11:32] VITALS: BP 155/53
[2025-06-20 12:23] LABS: Glucose - Point of Care 134 mg/dl (70-99)
[2025-06-20] MEDS: TYLENOL 650 MG PO (12:36)
--- NOTE | 2025-06-20 12:51 | W.PN.UPDATE ---
Update Note
Progress Note Update
Fever 100.4, also x2 bilious vomiting
CXR, CT abd/pelvis with IV contrast (cannot tolerate oral at present), along with labs ordered
d/w RN
[2025-06-20 13:58] LABS: Lipase 32 U/L (23-300)
[2025-06-20] MEDS: NSS 1000 IV (13:58)
[2025-06-20 14:16] LABS: Troponin I 0.045 ng/ml
[2025-06-20 15:25] VITALS: BP 152/64
--- NOTE | 2025-06-20 16:22 | CM ---
Met SO and patient in room. BIRD signed. Patient and SO live in one level home with 4 steps to enter. Prior to admit he was walking without device. He was able to do all his ADLs and sometimes needed verbal cues to initiate tasks.
He has 4 sons, ones in [place] and [place] are most active in his care per SO. SO and CM discussed SNF options, Medicare.gov long-term compare information provided to SO. She would like CM to look in [place] and [place] area for
SNFs. Discussed referrals to [facility], [facility], [facility].
There is a SPC in home but patient does not use.
PLAN:SNF rehab or return home with home care.
[2025-06-20] MEDS: LIPITOR 60 MG PO (17:21)
[2025-06-20 17:26] LABS: Glucose - Point of Care 146 mg/dl (70-99)
[2025-06-20 18:24] LABS: Urine Character Clear (Clear)
[2025-06-20 19:11] LABS: Troponin I 0.044 ng/ml
[2025-06-20 19:18] VITALS: BP 139/60
[2025-06-20 22:23] LABS: Glucose - Point of Care 143 mg/dl (70-99)
[2025-06-20 23:11] VITALS: BP 149/48
[2025-06-21 03:14] VITALS: BP 147/59
[2025-06-21] MEDS: TYLENOL 650 MG PO ×2 (03:19→22:45)
[2025-06-21] MEDS: NSS 1000 IV (03:19)
[2025-06-21 05:35] VITALS: BMI 24.2
[2025-06-21 06:00] VITALS: BMI 24.2
[2025-06-21 07:30] VITALS: BP 123/89
[2025-06-21 08:00] LABS: Glucose - Point of Care 130 mg/dl (70-99)
--- NOTE | 2025-06-21 10:04 | W.PN.HOSP.TC ---
Today's Communication/Plan
-
UTI treatment pending culture
continue Valacyclovir + contact precautions
monitor oral intake with previous nausea/vomiting felt related to acute illness
SNF planning
Assessment / Plan
Assessment / Plan
Assessment:
Herpes Zoster, L back/Flank
Fevers likely from Zoster process
- continue valacyclovir, day 2
- continue contact precautions
- no evidence of secondary bacterial infection at this time to explain fevers
possible acute cystitis per CT
- empiric Rocephin, day 1 pending urine culture
Nausea/vomiting 06/20/25
- suspect related to acute illness
- CT without acute pathology, and lipase/lactate normal
Nonischemic myocardial injury
- denies CP
- trop flat around .045
Generalized Weakness/Frequent Falls, suspect related to herpes zoster
Underlying Dementia (see below)
- PT/OT - SNF recommended
Coronary Artery Disease s/p CABG
Carotid Artery Stenosis s/p Left Carotid Artery Stent
Moderate
- continue aspirin and clopidogrel
- continue atorvastatin
Essential Hypertension
- continue metoprolol with hold parameters
Diabetes Mellitus, Type II
- hold metformin
- monitor sugars and continue coverage insulin
- A1c: 6.3%
Alzheimer's Dementia - Stable
- reviewed with patient's significant other that patient would likely benefit from Life Alert or similar product for when he is home alone
DVT ppx: SCDs
Code Status: Full Code
Anticipated Discharge: > 48 hours
Subjective/Interval History
-
Date of Service: June 21, 2025
fevers overnight, Tmax was 101.0
some episodes of vomiting; no bleed
CT suggestive of possible cystitis otherwise normal
Objective Data
-
Labs:
Laboratory Results
06/21/25
06:00
WBC Pending
Hgb Pending
Hct Pending
Plt Count Pending
Sodium Pending
Potassium Pending
Chloride Pending
Carbon Dioxide Pending
BUN Pending
Creatinine Pending
Glucose Pending
Calcium Pending
Total Bilirubin Pending
AST Pending
ALT Pending
Alkaline Phosphatase Pending
Vital Signs:
Vital Signs
Temp Pulse Resp BP Pulse Ox
98.1 F 71 16 123/89 97
06/21/25 07:30 06/21/25 07:30 06/21/25 07:30 06/21/25 07:30 06/21/25 07:30
I&O
06/20/25 06/21/25 06/22/25
06:59 06:59 06:59
Intake Total 380 / 380 600 / 600
Output Total 225 / 225 80 / 80
Balance 155 / 155 520 / 520
Physical Exam
-
General: No Apparent Distress
HEENT: Normocephalic and Atraumatic
Respiratory: Negative Wheezes
Cardiac: Regular Rhythm and S1/S2
GI: Soft
Musculoskeletal: Other (Left flank erythematous within single dermatome that does not cross the midline, few vesicles noted - some are crusted over)
Neuro: AO x 3
Hematologic / Lymphatic: No Lymphadenopathy
Psych: Calm
Data Reviewed
-
Total Time Spent with Patient (in minutes): 42
Labs: Labs Reviewed by me
[2025-06-21 11:06] LABS: Hematocrit 34.4 % (39.0-52.0); Hemoglobin 12.0 g/dL (13.0-18.0); Mean Corp Hgb Conc. 34.9 g/dL (33.0-37.0); Mean Corpuscular Volume 82.7 fL (80.0-94.0); Platelet Count 154 10^3/uL (130-400); Red Cell Dist. Width 13.5 % (11.5-14.5)
[2025-06-21 11:08] LABS: ALT (SGPT) 31 U/L (0-50); AST (SGOT) 81 U/L (17-59); Albumin 3.8 g/dl (3.5-5.0); Alkaline Phosphatase 84 U/L (38-126); Blood Urea Nitrogen 20 mg/dl (9-20); Calcium 8.4 mg/dl (8.4-10.2); Carbon Dioxide 28 mmol/L (22-30); Chloride 96 mmol/L (98-107); Estimated Creatinine Clearance 63 ml/min; Glucose 145 mg/dl (70-99); Potassium 3.5 mmol/L (3.5-5.1); Sodium 131 mmol/L (135-145); Total Protein 6.8 g/dl (6.3-8.2); eGFR > 60.00
[2025-06-21] MEDS: VALTREX 1000 MG PO ×3 (11:28→22:43)
[2025-06-21] MEDS: PLAVIX 75 MG PO (11:29)
[2025-06-21] MEDS: ASPIR LOW (ENTERIC COATED) 81 MG PO (11:29)
[2025-06-21] MEDS: ROCEPHIN 1000 MG IV (11:29)
[2025-06-21] MEDS: STERILE WATER FOR INJECTION 10 ML IV (11:29)
[2025-06-21] MEDS: TOPROL XL 25 MG PO ×2 (11:29→20:41)
[2025-06-21] MEDS: FLUSH (NSS) 2 FLUSH IV (11:32)
[2025-06-21 11:41] VITALS: BP 163/59; BP 171/59; PULSE 78; PULSE 79
[2025-06-21] MEDS: NOVOLOG FLEXPEN-LOW RESISTANCE SC (11:43)
[2025-06-21 12:10] LABS: Glucose - Point of Care 162 mg/dl (70-99)
[2025-06-21 15:40] VITALS: BP 115/56
[2025-06-21] MEDS: NOVOLOG FLEXPEN-LOW RESISTANCE 1 UNITS SC ×2 (16:04→17:58)
[2025-06-21 17:28] LABS: Glucose - Point of Care 151 mg/dl (70-99)
[2025-06-21] MEDS: LIPITOR 60 MG PO (17:58)
[2025-06-21] MEDS: LOVENOX 40 MG SC (17:59)
[2025-06-21 19:14] VITALS: BP 128/62
[2025-06-21 22:02] LABS: Glucose - Point of Care 123 mg/dl (70-99)
[2025-06-21 23:16] VITALS: BP 128/53
[2025-06-22] VITALS (9 sets, daily range): BP systolic 108–133; BP diastolic 38–89; PULSE 60–77; O2SAT 96
[2025-06-22 08:51] LABS: Glucose - Point of Care 144 mg/dl (70-99)
[2025-06-22 09:04] LABS: Hematocrit 34.1 % (39.0-52.0); Hemoglobin 11.7 g/dL (13.0-18.0); Mean Corp Hgb Conc. 34.3 g/dL (33.0-37.0); Mean Corpuscular Volume 84.8 fL (80.0-94.0); Platelet Count 158 10^3/uL (130-400); Red Cell Dist. Width 13.5 % (11.5-14.5)
[2025-06-22] MEDS: NOVOLOG FLEXPEN-LOW RESISTANCE SC ×3 (09:28→18:34)
[2025-06-22] MEDS: ASPIR LOW (ENTERIC COATED) 81 MG PO (09:28)
[2025-06-22] MEDS: PLAVIX 75 MG PO (09:28)
[2025-06-22] MEDS: VALTREX 1000 MG PO ×3 (09:28→21:55)
[2025-06-22] MEDS: TOPROL XL 25 MG PO ×2 (09:29→20:20)
[2025-06-22 10:01] LABS: ALT (SGPT) 32 U/L (0-50); AST (SGOT) 90 U/L (17-59); Albumin 3.7 g/dl (3.5-5.0); Alkaline Phosphatase 78 U/L (38-126); Blood Urea Nitrogen 24 mg/dl (9-20); Calcium 8.4 mg/dl (8.4-10.2); Carbon Dioxide 32 mmol/L (22-30); Chloride 97 mmol/L (98-107); Estimated Creatinine Clearance 55 ml/min; Glucose 103 mg/dl (70-99); Potassium 3.6 mmol/L (3.5-5.1); Sodium 132 mmol/L (135-145); Total Protein 6.9 g/dl (6.3-8.2); eGFR > 60.00
[2025-06-22] MEDS: ROCEPHIN 1000 MG IV (11:01)
[2025-06-22] MEDS: STERILE WATER FOR INJECTION 10 ML IV (11:01)
--- NOTE | 2025-06-22 12:47 | W.PN.HOSP.TC ---
Today's Communication/Plan
-
Await PT/OT
Stop ceftriaxone
Assessment / Plan
Assessment / Plan
Gen-AAOx3, NAD
HEENT-NC, AT, anicteric, clear oral mm
Neck-supple
CV-reg, no M, +S1/S2
Lungs-clear B/L
Abd-soft, NT, ND
Ext-no edema
Musculoskeletal-no cyanosis, clubbing
Skin-warm and dry
Neuro-grossly non-focal
Psych-calm, cooperative
Herpes Zoster, L back/Flank
Fevers likely from Zoster process
- continue valacyclovir, day 3
- continue contact precautions
- no evidence of secondary bacterial infection at this time to explain fevers
Discontinue further antibiotics, no evidence of UTI based upon urinalysis, urine culture.
He is not vaccinated for zoster. Recommend zoster vaccine in 12 months as an outpatient.
Hyponatremia -POA. Sodium relatively stable, 132.
Nausea/vomiting 06/20/25
- suspect related to acute illness
- CT without acute pathology, and lipase/lactate normal
Acute nonischemic myocardial injury
- denies CP
- trop flat around .045
Generalized Weakness/Frequent Falls, suspect related to herpes zoster
Underlying Dementia (see below)
- PT/OT - SNF recommended
Coronary Artery Disease s/p CABG
Carotid Artery Stenosis s/p Left Carotid Artery Stent
Moderate
- continue aspirin and clopidogrel
- continue atorvastatin
Essential Hypertension
- continue metoprolol with hold parameters
Diabetes Mellitus, Type II
- hold metformin
- monitor sugars and continue coverage insulin
- A1c: 6.3%
Alzheimer's Dementia - Stable
- reviewed with patient's significant other that patient would likely benefit from Life [employer] or similar product for when he is home alone
DVT ppx: SCDs
Code Status: Full Code
Dispo -stable to go to rehab versus home with home care. Await PT/OT input today.
Updated at the bedside.
Anticipated Discharge: Today
Subjective/Interval History
-
Date of Service: June 22, 2025
Patient seen and examined. No complaints.
Objective Data
-
Labs:
Laboratory Results
06/22/25
07:49
WBC 7.7
Hgb 11.7 L
Hct 34.1 L
Plt Count 158
Sodium 132 L
Potassium 3.6
Chloride 97 L
Carbon Dioxide 32 H
BUN 24 H
Creatinine 0.8
Glucose 103 H
Calcium 8.4
Total Bilirubin 1.1
AST 90 H
ALT 32
Alkaline Phosphatase 78
Vital Signs:
Vital Signs
Temp Pulse Resp BP Pulse Ox
98.7 F 65 18 125/50 95
06/22/25 11:49 06/22/25 11:49 06/22/25 11:49 06/22/25 11:49 06/22/25 11:49
I&O
06/21/25 06/22/25 06/23/25
06:59 06:59 06:59
Intake Total 600 / 600 770 / 770
Output Total 80 / 80 365 / 365
Balance 520 / 520 405 / 405
Review of Systems
-
History Source: Patient
All other systems: Reviewed and negative
[2025-06-22 12:57] LABS: Glucose - Point of Care 145 mg/dl (70-99)
--- NOTE | 2025-06-22 14:00 | CM ---
Therapy recommendation for SNF. Spoke with patient and family (SO and 2 cousins). Provided Medicare/Gov list. Preferences are: [facility], [facility], [facility] and [facility]. Discharge POC: SNF. Referrals forwarded. Eleonora Metcalf SO and primary
contact works from 5:00am to 1:00pm. Will not have her phone on, requests CM leave a message.
[2025-06-22 18:10] LABS: Glucose - Point of Care 124 mg/dl (70-99)
[2025-06-22] MEDS: LOVENOX 40 MG SC (18:34)
[2025-06-22] MEDS: LIPITOR 60 MG PO (18:34)
[2025-06-22 22:10] LABS: Glucose - Point of Care 139 mg/dl (70-99)
[2025-06-23 03:19] VITALS: BP 131/39
[2025-06-23 08:05] LABS: ALT (SGPT) 35 U/L (0-50); AST (SGOT) 104 U/L (17-59); Albumin 3.5 g/dl (3.5-5.0); Alkaline Phosphatase 86 U/L (38-126); Blood Urea Nitrogen 22 mg/dl (9-20); Calcium 8.1 mg/dl (8.4-10.2); Carbon Dioxide 30 mmol/L (22-30); Chloride 95 mmol/L (98-107); Estimated Creatinine Clearance 55 ml/min; Glucose 97 mg/dl (70-99); Potassium 3.5 mmol/L (3.5-5.1); Sodium 130 mmol/L (135-145); Total Protein 6.6 g/dl (6.3-8.2); eGFR > 60.00
[2025-06-23 08:10] VITALS: BP 112/42; BP 116/59; BP 124/50; PULSE 56; PULSE 61; PULSE 70
[2025-06-23 08:20] LABS: Glucose - Point of Care 102 mg/dl (70-99)
[2025-06-23] MEDS: NOVOLOG FLEXPEN-LOW RESISTANCE SC ×3 (08:40→17:37)
[2025-06-23] MEDS: ASPIR LOW (ENTERIC COATED) 81 MG PO (08:41)
[2025-06-23] MEDS: VALTREX 1000 MG PO ×3 (08:41→22:00)
[2025-06-23] MEDS: PLAVIX 75 MG PO (08:41)
[2025-06-23] MEDS: TOPROL XL PO (08:42)
[2025-06-23] MEDS: KCL 20 MEQ PO (11:36)
[2025-06-23 11:48] LABS: Glucose - Point of Care 112 mg/dl (70-99)
--- NOTE | 2025-06-23 11:49 | W.PN.HOSP.TC ---
Today's Communication/Plan
-
Discharge planning
Assessment / Plan
Assessment / Plan
Gen-AAOx3, NAD
HEENT-NC, AT, anicteric, clear oral mm
Neck-supple
CV-reg, no M, +S1/S2
Lungs-clear B/L
Abd-soft, NT, ND
Ext-no edema
Musculoskeletal-no cyanosis, clubbing
Skin-warm and dry
Neuro-grossly non-focal
Psych-calm, cooperative
Herpes Zoster, L back/Flank -rash is improving.
Fevers likely from Zoster process
- continue valacyclovir, started 06/19. Treat for 7 days.
- continue contact precautions
- no evidence of secondary bacterial infection at this time to explain fevers
Discontinue further antibiotics, no evidence of UTI based upon urinalysis, urine culture.
He is not vaccinated for zoster. Recommend zoster vaccine as outpatient. Discussed with patient's son.
Hyponatremia -POA. Sodium relatively stable.
Nausea/vomiting 06/20/25 -resolved.
- suspect related to acute illness
- CT without acute pathology, and lipase/lactate normal
Acute nonischemic myocardial injury
- denies CP
- trop flat around .045
Generalized Weakness/Frequent Falls, suspect related to herpes zoster
Underlying Dementia (see below)
- PT/OT - SNF recommended
Coronary Artery Disease s/p CABG
Carotid Artery Stenosis s/p Left Carotid Artery Stent
Moderate
- continue aspirin and clopidogrel
- continue atorvastatin
Essential Hypertension
- continue metoprolol with hold parameters
Diabetes Mellitus, Type II
- hold metformin
- monitor sugars and continue coverage insulin
- A1c: 6.3%
Alzheimer's Dementia - Stable
- reviewed with patient's significant other that patient would likely benefit from Life Alert or similar product for when he is home alone
DVT ppx: SCDs
Code Status: Full Code
Dispo -medically stable for discharge to SNF.
Patient states that he prefers to go home. I informed him that this is not a good idea as he is at high risk for falls and rehospitalization.
Discussed in detail with patient's son at the bedside who concurs with SNF placement. Updated case management.
Anticipated Discharge: Within 24 hours
Subjective/Interval History
-
Date of Service: June 23, 2025
Patient seen and examined, no complaints. Asking to go home.
Objective Data
-
Labs:
Laboratory Results
06/23/25
06:20
Sodium 130 L
Potassium 3.5
Chloride 95 L
Carbon Dioxide 30
BUN 22 H
Creatinine 0.8
Glucose 97
Calcium 8.1 L
Total Bilirubin 0.9
AST 104 H
ALT 35
Alkaline Phosphatase 86
Vital Signs:
Vital Signs
Temp Pulse Resp BP Pulse Ox
98.8 F 56 17 124/50 96
06/23/25 08:10 06/23/25 08:10 06/23/25 08:10 06/23/25 08:10 06/23/25 08:10
I&O
06/22/25 06/23/25 06/24/25
06:59 06:59 06:59
Intake Total 770 / 770
Output Total 365 / 365 550 / 550
Balance 405 / 405 -550 / -550
Review of Systems
-
History Source: Patient
All other systems: Reviewed and negative
[2025-06-23 11:56] VITALS: BP 124/59
--- NOTE | 2025-06-23 14:49 | CM ---
CM reviewed pt with attending- ready for dc
Multiple outreahc to SNFs, only accepting bed at this time is [facility]
Call with SO and sh eis in agreement with plan
[employer] auth initiated on [employer] and pending
Clinicals faxed to [employer]
Ref# [id number]
Discharge Disposition- ADC tomorrow to [facility] pending [employer] auth
[2025-06-23 16:48] VITALS: BP 123/55
[2025-06-23 17:16] LABS: Glucose - Point of Care 111 mg/dl (70-99)
[2025-06-23] MEDS: LIPITOR 60 MG PO (17:37)
[2025-06-23] MEDS: LOVENOX 40 MG SC (17:37)
[2025-06-23] MEDS: TOPROL XL 25 MG PO (20:04)
[2025-06-23 21:51] LABS: Glucose - Point of Care 117 mg/dl (70-99)
[2025-06-23 23:14] VITALS: BP 138/52
[2025-06-24 07:00] VITALS: BP 119/49
[2025-06-24 07:42] LABS: Glucose - Point of Care 119 mg/dl (70-99)
[2025-06-24] MEDS: NOVOLOG FLEXPEN-LOW RESISTANCE SC ×2 (07:55→12:53)
[2025-06-24] MEDS: PLAVIX 75 MG PO (08:08)
[2025-06-24] MEDS: KCL 20 MEQ PO (08:08)
[2025-06-24] MEDS: ASPIR LOW (ENTERIC COATED) 81 MG PO (08:08)
[2025-06-24] MEDS: VALTREX 1000 MG PO ×2 (08:08→15:06)
[2025-06-24] MEDS: TOPROL XL 25 MG PO (08:09)
[2025-06-24 09:58] LABS: Blood Urea Nitrogen 19 mg/dl (9-20); Calcium 8.5 mg/dl (8.4-10.2); Carbon Dioxide 29 mmol/L (22-30); Chloride 96 mmol/L (98-107); Estimated Creatinine Clearance 63 ml/min; Glucose 109 mg/dl (70-99); Potassium 4.2 mmol/L (3.5-5.1); Sodium 131 mmol/L (135-145); eGFR > 60.00
[2025-06-24 11:00] VITALS: BP 127/54; BP 133/53; BP 143/75; PULSE 62; PULSE 64; PULSE 73
--- NOTE | 2025-06-24 11:01 | W.PN.HOSP.TC ---
Today's Communication/Plan
-
Discharge planning
Assessment / Plan
Assessment / Plan
Gen-AAOx3, NAD
HEENT-NC, AT, anicteric, clear oral mm
Neck-supple
CV-reg, no M, +S1/S2
Lungs-clear B/L
Abd-soft, NT, ND
Ext-no edema
Musculoskeletal-no cyanosis, clubbing
Skin-warm and dry
Neuro-grossly non-focal
Psych-calm, cooperative
Herpes Zoster, L back/Flank -rash is improving.
Fevers likely from Zoster process
- continue valacyclovir, started 06/19. Treat for 7 days.
- continue contact precautions
- no evidence of secondary bacterial infection at this time to explain fevers
Discontinue further antibiotics, no evidence of UTI based upon urinalysis, urine culture.
He is not vaccinated for zoster. Recommend zoster vaccine as outpatient. Discussed with patient's son.
Hyponatremia -POA. Sodium relatively stable.
Nausea/vomiting 06/20/25 -resolved.
- suspect related to acute illness
- CT without acute pathology, and lipase/lactate normal
Acute nonischemic myocardial injury
- denies CP
- trop flat around .045
Generalized Weakness/Frequent Falls, suspect related to herpes zoster
Underlying Dementia (see below)
- PT/OT - SNF recommended
Coronary Artery Disease s/p CABG
Carotid Artery Stenosis s/p Left Carotid Artery Stent
Moderate
- continue aspirin and clopidogrel
- continue atorvastatin
Essential Hypertension
- continue metoprolol with hold parameters
DM 2 without hyperglycemia -glucoses controlled.
- hold metformin
- monitor sugars and continue coverage insulin
- A1c: 6.3%
Alzheimer's Dementia - Stable
- reviewed with patient's significant other that patient would likely benefit from Life Alert or similar product for when he is home alone
DVT ppx: SCDs
Code Status: Full Code
Dispo -medically stable for discharge to SNF.
Updated case management. Awaiting insurance authorization for SNF.
Anticipated Discharge: Today
Subjective/Interval History
-
Date of Service: June 24, 2025
Patient seen and examined. No complaints.
Objective Data
-
Labs:
Laboratory Results
06/24/25
08:30
Sodium 131 L
Potassium 4.2
Chloride 96 L
Carbon Dioxide 29
BUN 19
Creatinine 0.7
Glucose 109 H
Calcium 8.5
Vital Signs:
Vital Signs
Temp Pulse Resp BP Pulse Ox
97.1 F 61 16 138/52 96
06/24/25 07:00 06/24/25 08:09 06/24/25 07:00 06/24/25 08:09 06/24/25 08:00
I&O
06/23/25 06/24/25 06/25/25
06:59 06:59 06:59
Output Total 550 / 550 625 / 625
Balance -550 / -550 -625 / -625
Review of Systems
-
History Source: Patient
All other systems: Reviewed and negative
--- NOTE | 2025-06-24 11:20 | CM ---
Addendum entered by Sabina Reyes 06/24/25 13:25:
CM spoke with patient friend Eleonora and reviewed IMM; Per Silas patient good to go to SNF today and she will have son visit patient at [facility] later today. CM completed Transportation forms and placed on chart.
[phone]/fax [phone].
Addendum entered by Sabina Reyes 06/24/25 11:49:
CM spoke with Liaison at [facility] and they accepted patient for 4th floor. [phone]/fax [phone]. CM will talk to patient/family about IMM.
Original Note:
Ref# [id number]; approved via [employer]. 06/23-06/29. CM called to Liaison at [facility] and awaiting confirmation of bed and ability to accept.
Plan; SNF
[2025-06-24 12:48] LABS: Glucose - Point of Care 116 mg/dl (70-99)
--- NOTE | 2025-06-24 13:40 | W.DS.TRANS ---
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
-
Discharge Instructions:
Discharge Diagnosis/Procedures Herpes zoster, hyponatremia, ambulatory
dysfunction
Diet Diabetic, Carb Controlled
Activity With assistance
Driving Restrictions No driving
Bathing Restrictions None
Instructions:
Stand-Alone Forms:
Changes to Home Medications: No
Discharge Medications:
DC Medications w/original date entered in [employer]
aspirin 81 mg tablet,delayed release 81 mg PO DAILY Blood clot prevention/tx 02/06/13
metformin 500 mg tablet 500 mg PO DAILY Diabetes 11/02/20
metoprolol succinate 25 mg tablet,extended release 24 hr (Toprol XL) 25 mg PO BID Blood Pressure 04/20/25
atorvastatin 40 mg tablet (Lipitor) 60 mg PO QPM High Cholesterol 06/19/25
clopidogrel 75 mg tablet 75 mg PO DAILY 06/19/25
ergocalciferol (vitamin D2) 1,250 mcg (50,000 unit) capsule 1,250 mcg PO QWEEK 06/19/25
valacyclovir 500 mg tablet 1,000 mg (2 x 500 mg) PO TID #8 tabs 06/24/25
Home Medication Changes
Pending Results: No
[2025-06-24 15:29] VITALS: BP 139/51
== END 2025-06-24 16:01 | DRG 596 ==
LOC: 2 NORTH 10:42
PROVIDERS: Internal Medicine; Physician Assistant Medical; ADMITTING PHYSICIAN Internal Medicine; ATTENDING PHYSICIAN Hospitalist; EMERGENCY PHYSICIAN Emergency Medicine; FAMILY PHYSICIAN Family Medicine
DX: B02.9 Zoster without complications (principal); I5A Non-ischemic myocardial injury (non-traumatic); E87.1 Hypo-osmolality and hyponatremia; Z87.891 Personal history of nicotine dependence; I65.29 Occlusion and stenosis of unspecified carotid artery; I10 Essential (primary) hypertension; E11.9 Type 2 diabetes mellitus without complications; F02.80 Dementia in other diseases classified elsewhere, unspecified severity, without behavioral disturbance, psychotic disturbance, mood disturbance, and anxiety; G30.9 Alzheimer's disease, unspecified; Z11.52 Encounter for screening for COVID-19; W19.XXXA Unspecified fall, initial encounter
CPT/HCPCS: 70450; 71045; 74177; 80048; 80053; 81003; 81015; 82962; 83036; 83605; 83690; 83735; 84484; 85025; 85027; 87070; 87086; 87502; 87811; 93005; 97116; 97163; 97167; 97530; 97535; 99285; Q9967

== ENCOUNTER → 2025-06-26 11:11 | Outpatient (REF) | payer OTHER, MEDICARE, SELFPAY ==
[2025-06-26 12:41] LABS: Hematocrit 34.6 % (39.0-52.0); Hemoglobin 11.4 g/dL (13.0-18.0); Mean Corp Hgb Conc. 32.9 g/dL (33.0-37.0); Mean Corpuscular Volume 90.1 fL (80.0-94.0); Nucleated Red Blood Cells % 0 % (-); Platelet Count 191 10^3/uL (130-400); Red Cell Dist. Width 13.7 % (11.5-14.5)
[2025-06-26 12:51] LABS: Blood Urea Nitrogen 18 mg/dl (9-20); Calcium 8.8 mg/dl (8.4-10.2); Carbon Dioxide 29 mmol/L (22-30); Chloride 99 mmol/L (98-107); Glucose 128 mg/dl (70-99); Potassium 4.3 mmol/L (3.5-5.1); Sodium 134 mmol/L (135-145); eGFR > 60.00
== END ==
LOC: OLABP 11:11
PROVIDERS: ATTENDING PHYSICIAN Family Medicine
DX: I10 Essential (primary) hypertension (principal); M62.59 Muscle wasting and atrophy, not elsewhere classified, multiple sites; B02.9 Zoster without complications; E87.1 Hypo-osmolality and hyponatremia; F03.90 Unspecified dementia, unspecified severity, without behavioral disturbance, psychotic disturbance, mood disturbance, and anxiety; R53.1 Weakness; I25.10 Atherosclerotic heart disease of native coronary artery without angina pectoris; E11.9 Type 2 diabetes mellitus without complications
CPT/HCPCS: 36415; 80048; 85025

== ENCOUNTER → 2025-07-02 11:08 | Outpatient (REF) | payer OTHER, MEDICARE, SELFPAY ==
[2025-07-02 11:46] LABS: Hematocrit 32.9 % (39.0-52.0); Hemoglobin 10.6 g/dL (13.0-18.0); Mean Corp Hgb Conc. 32.2 g/dL (33.0-37.0); Mean Corpuscular Volume 92.2 fL (80.0-94.0); Nucleated Red Blood Cells % 0 % (-); Platelet Count 246 10^3/uL (130-400); Red Cell Dist. Width 14.4 % (11.5-14.5)
[2025-07-02 12:03] LABS: Calcium 8.9 mg/dl (8.4-10.2); Carbon Dioxide 28 mmol/L (22-30); Chloride 98 mmol/L (98-107); Glucose 119 mg/dl (70-99); Potassium 4.0 mmol/L (3.5-5.1); Sodium 135 mmol/L (135-145); eGFR > 60.00
[2025-07-02 12:13] LABS: Blood Urea Nitrogen 20 mg/dl (9-20)
== END ==
LOC: OLABP 11:08
PROVIDERS: ATTENDING PHYSICIAN Family Medicine
DX: M62.59 Muscle wasting and atrophy, not elsewhere classified, multiple sites (principal); B02.9 Zoster without complications; E87.1 Hypo-osmolality and hyponatremia; F03.90 Unspecified dementia, unspecified severity, without behavioral disturbance, psychotic disturbance, mood disturbance, and anxiety; R53.1 Weakness; I25.10 Atherosclerotic heart disease of native coronary artery without angina pectoris; I10 Essential (primary) hypertension; E11.9 Type 2 diabetes mellitus without complications
CPT/HCPCS: 36415; 80048; 85025

== ENCOUNTER → 2025-07-06 15:33 | Outpatient (REF) | payer MEDICARE, SELFPAY ==
[2025-07-06 16:37] LABS: Hematocrit 36.6 % (39.0-52.0); Hemoglobin 12.0 g/dL (13.0-18.0); Mean Corp Hgb Conc. 32.8 g/dL (33.0-37.0); Mean Corpuscular Volume 90.4 fL (80.0-94.0); Nucleated Red Blood Cells % 0 % (-); Platelet Count 265 10^3/uL (130-400); Red Cell Dist. Width 14.7 % (11.5-14.5)
[2025-07-06 16:45] LABS: ALT (SGPT) 27 U/L (0-50); AST (SGOT) 25 U/L (17-59); Albumin 4.5 g/dl (3.5-5.0); Alkaline Phosphatase 63 U/L (38-126); Blood Urea Nitrogen 24 mg/dl (9-20); Calcium 9.8 mg/dl (8.4-10.2); Carbon Dioxide 32 mmol/L (22-30); Chloride 100 mmol/L (98-107); Glucose 142 mg/dl (70-99); Potassium 4.3 mmol/L (3.5-5.1); Sodium 139 mmol/L (135-145); Total Protein 8.0 g/dl (6.3-8.2); eGFR > 60.00
[2025-07-06 16:57] LABS: Troponin I < 0.012 ng/ml
== END ==
LOC: CLAB 15:33
PROVIDERS: ATTENDING PHYSICIAN Physician Assistant Medical
DX: E87.1 Hypo-osmolality and hyponatremia (principal); I5A Non-ischemic myocardial injury (non-traumatic); Z51.89 Encounter for other specified aftercare
CPT/HCPCS: 36415; 80053; 84484; 85025